=== PATIENT | male | born 1955 | race African-American/Black ===

== ENCOUNTER 2021-10-21 12:55 | Emergency (ER) | payer SELFPAY ==
[2021-10-21 13:04] VITALS: BP 150/98; PULSE 91; RESP 16; TEMP 36.3; O2SAT 99
--- NOTE | 2021-10-21 13:09 | ED.GENADULT ---
HPI - General Adult General Chief complaint: Head Injury Stated complaint: Right side Head and neck pain Time Seen by Provider: 10/21/21 13:09 Source: patient Mode of arrival: ambulatory Limitations: no limitations History of Present Illness HPI narrative: 65 yo M presents with pain to R side of scalp radiating behind R ear and into neck. describes pain and sharp, shooting . denies injury. has full ROM of neck. having difficulty resting due to pain. took ibuprofen with no relief. no vision change. has known tooth that needs extracted but tooth is not really painful. pt is from out of [facility] [address] and does not have PCP. All systems reviewed and negative except as noted above. Related Data Home Medications Medication Instructions Recorded Confirmed No Home Medications 10/21/21 10/21/21 Allergies Allergy/AdvReac Type Severity Reaction Status Date / Time No Known Allergies Allergy Verified 10/21/21 13:09 Review of Systems Review of Systems: CONSTITUTIONAL: Denies fever, chills, or sweats. EYES: Denies visual changes, redness, or discharge. ENT: Denies rhinorrhea, congestion, sore throat, or otalgia. CARDIOVASCULAR: Denies chest pain, palpitations, or edema. RESPIRATORY: Denies cough or dyspnea. GASTROINTESTINAL: Denies abdominal pain, nausea, vomiting, or diarrhea. GENITOURINARY: Denies dysuria or hematuria. SKIN: Denies rash or itching. MUSCULOSKELETAL: Denies back pain, joint pain, or myalgia. NEUROLOGIC: Denies headache, numbness, or weakness. c/o sharp, shooting pain to R side scalp, radiating behind R ear and into neck. PSYCHIATRIC: Denies anxiety or depression. All other systems reviewed are negative, except as documented in HPI. PMFSH Comments At time of signature, agree with nursing past medical, surgical, social and family history. There is no relevant family history pertinent to the presenting complaint. Exam Narrative: GENERAL: This is a well-nourished, well-developed patient, in no apparent distress. HEAD: normocephalic, atraumatic. EYES: PERRL. Sclera clear/white. Vision is grossly intact. EARS: External ears normal, auditory canals clear and without drainage, TMs normal without perforation. Hearing grossly intact. NOSE: External nose normal with no obvious nasal discharge, nares without redness, no rhinorrhea. THROAT: Mucous membranes moist, posterior pharynx clear. NECK: Neck supple, non-tender without lymphadenopathy, masses or thyromegaly. CARDIOVASCULAR: Regular rate and rhythm without murmurs, gallops, or rubs. RESPIRATORY: Clear to auscultation. Breath sounds equal bilaterally. No wheezes, rales, or rhonchi. GASTROINTESTINAL: Abdomen soft, non-tender, nondistended. Bowel sounds are active. No hepato-splenomegaly, or palpable masses. No guarding. SKIN: warm, Dry, intact with no suspicious lesions or rash, good texture and turgor. NEURO: awake, alert, and oriented to person, place and time. There were no obvious focal neurologic abnormalities. EXTREMITIES: No joint tenderness, effusion, or edema noted. No calf tenderness. Negative Homans sign bilaterally. BACK: Nontender without deformity. No CVA tenderness. Course Course Level of Care: Express Care Visit Medical Decision Making MDM Narrative Medical decision making narrative: Patient is aware of diagnosis, understands and agrees to treatment plan. Anticipatory guidance given. Patient agrees to follow-up as directed and is aware of reasons to seek care at the emergency department. will treat as shingles with antiviral. pt's description concerning for nerve pain. pain follows dermatome. rash is absent. there is no facial paralysis concerning for bells palsy. he denies pain to R ear, behind ear . there is also no injury, swelling, open wound. slight tenderness on palpation. Portions of this record may have been created with voice recognition software Discharge Plan Discharge Clinical Impression: [facility] herpete, Pain, dental Patient Dispositio
== END 2021-10-21 13:34 | disposition home or self-care (01) ==
PROVIDERS: Emergency Provider Nurse Practitioner Family
DX: B02.9 Zoster without complications (principal); K08.89 Other specified disorders of teeth and supporting structures
CPT/HCPCS: 99213; G0463

== ENCOUNTER 2024-08-11 10:15 | Outpatient (CLI) | payer MEDICARE, SELFPAY ==
--- NOTE | ~2024-08-11 | XR_ITS ---
EXAMINATION: XR lumbar spine 2-3V DATE: 08/11/2024 10:32 INDICATION: Low back pain. TECHNIQUE: 3 views of lumbar spine were obtained. COMPARISON: None. FINDINGS: Alignment is normal. Vertebral body heights are normal. There is mildly decreased disc heig ht at L3-L4 and L4-5. There are endplate osteophytes at all levels. There is multilevel facet joint o steoarthritis, severe in lower lumbar spine. IMPRESSION: 1. Mild lumbar spondylosis. Reviewed, dictated and finalized at location A. PILOT IMPRESSION: 1. Mild lumbar spondylosis.
--- NOTE | ~2024-08-11 | XR_ITS ---
EXAMINATION: XR hip LT min 2V DATE: 08/11/2024 10:32 INDICATION: Left hip pain. TECHNIQUE: 2 views of left hip were obtained. COMPARISON: None. FINDINGS: Alignment is normal. No fracture. There is moderate left hip osteoarthritis. IMPRESSION: 1. Moderate left hip osteoarthritis. Reviewed, dictated and finalized at location A. [employer]
== END 2024-08-11 10:16 | disposition home or self-care (01) ==
PROVIDERS: PCP Internal Medicine; Visit Provider Internal Medicine
DX: M47.896 Other spondylosis, lumbar region (principal); M16.12 Unilateral primary osteoarthritis, left hip
CPT/HCPCS: 72100; 73502

== ENCOUNTER 2025-03-14 07:11 | Outpatient (CLI) | payer MEDICARE, SELFPAY ==
--- NOTE | ~2025-03-14 | MR_ITS ---
MRI of the lumbar spine Clinical History: Back pain Technique: Axial T2-weighted images, and sagittal T1-weighted, T2-weighted, and T2 fat-sat images wer e acquired. Findings: No fracture or subluxation identified. Vertebral bodies maintain normal height and line. No bone marrow signal abnormality seen. At L1-L2, there is no disc bulge or herniation. No spinal canal stenosis or neural foraminal narrowin g. At L2-L3, there is minimal disc desiccation but no disc bulge or herniation. There is mild facet hype rtrophy. No spinal canal stenosis or neural foraminal narrowing. At L3-L4, there is minimal disc bulge with mild facet arthropathy. No central canal stenosis. There i s moderate bilateral neural foraminal narrowing. At L4-L5, there is diffuse disc bulge with severe facet arthropathy. There is mild to moderate centra l canal stenosis. There is moderate to advanced bilateral neural foraminal narrowing, left worse than right. At L5-S1, there is diffuse disc bulge with moderate to advanced facet arthropathy. No central canal s tenosis. There is moderate to advanced bilateral neural foraminal narrowing. Paravertebral soft tissues are unremarkable. Impression: Moderate to advanced degenerative spondylosis of the lower lumbar spine, as detailed above. Reviewed, dictated and finalized at location . Impression: Moderate to advanced degenerative spondylosis of the lower lumbar spine, as det mehran above.
== END 2025-03-14 07:12 | disposition home or self-care (01) ==
LOC: MICIMG 07:12
PROVIDERS: PCP Internal Medicine; Visit Provider Internal Medicine
DX: M47.896 Other spondylosis, lumbar region (principal)
CPT/HCPCS: 72148